=== PATIENT | female | born 1995 | race Caucasian/White ===

== ENCOUNTER 2019-08-29 11:56 | Inpatient (IN) | payer OTHER ==
[~2019-08-29] VITALS: Ht 149.9 cm; Wt 50.3 kg
[2019-08-29 12:04] VITALS: BP 112/69
--- NOTE | 2019-08-29 12:15 | NUR ---
23/F C/O UPPER ABD PAIN X2 DAYS ACCOMPANIED BY FEVER AND NAUSEA. PT DENIES V/D. LBM YESTERDAY SOFTER THAN NORMAL BUT STILL FORMED. C/O BLOATING YESTERDAY. PAIN 6/10 SHARP CRAMPY AND INTERMITTENT. DENIES POSSIBILITY OF . NAD AT THIS TIME. VSS; BEDRAILS UP X1; ERMD TO EVALUATE PT. HX: NONE RX: NONE
--- NOTE | 2019-08-29 12:32 | NUR ---
DR. HOYOS EVALUATING PT AT BEDSIDE.
[2019-08-29] MEDS ORDERED: NACL 0.9% 1,000 ML IV ONE (12:38)
[2019-08-29] MEDS ORDERED: GLYCOPYRROLATE 0.2 MG/ML VIAL IV ONE (12:40)
[2019-08-29] MEDS ORDERED: ONDANSETRON 4 MG/2 ML VIAL IVP ONE (12:40)
[2019-08-29] MEDS ORDERED: MORPHINE SULFATE 2 MG/ML SYR IVP ONE (12:40)
[2019-08-29] MEDS ORDERED: KETOROLAC 30 MG/ML VIAL IVP ONE (12:40)
[2019-08-29 13:29] LABS: BASOPHILS % (AUTO) 0.5 % (0.0-2.0); EOSINOPHILS % (AUTO) 0.1 % (0.0-4.0); HEMATOCRIT 39.4 % (36-48); HEMOGLOBIN 13.1 g/dL (12.0-16.0); LYMPHOCYTES # (AUTO) 1.7 K/uL (2.5-16.5); LYMPHOCYTES % (AUTO) 40.4 % (20.5-51.1); MEAN CORPUSCULAR HEMOGLOBIN 30 pg (27-31); MEAN CORPUSCULAR HGB CONC 33 g/dL (33-37); MONOCYTES # (AUTO) 0.4 K/uL (0.8-1.0); MONOCYTES % (AUTO) 9.3 % (1.7-9.3); NEUTROPHILS # (AUTO) 2.1 K/uL (1.8-7.7); NEUTROPHILS % (AUTO) 49.7 % (42.2-75.2); PLATELET COUNT (AUTO) 163 K/uL (140-450); RED BLOOD CELL COUNT(AUTO) 4.33 MIL/uL (4.20-5.40); RED CELL DISTRIBUTION WIDTH 12.9 % (11.6-13.7); WHITE BLOOD COUNT (AUTO) 4.2 K/uL (4.8-10.8)
[2019-08-29 13:41] LABS: APPEARANCE,URINE CLEAR (CLEAR); BILIRUBIN,URINE NEGATIVE (NEGATIVE); BLOOD, URINE TRACE-I (NEGATIVE); COLOR,URINE YELLOW (YELLOW); LEUKOCYTE ESTERASE ,URINE 2+ (NEGATIVE); NITRITE, URINE NEGATIVE (NEGATIVE); UGLUCOSE NEGATIVE (NEGATIVE)
[2019-08-29 13:49] LABS: ANION GAP 13.3 (8-16); CARBON DIOXIDE 26.5 mmol/L (21-32); CREATININE 0.6 mg/dL (0.6-1.3); POTASSIUM 3.8 mmol/L (3.5-5.1)
--- NOTE | 2019-08-29 13:49 | NUR ---
Patient returned from CT scan.
[2019-08-29 13:56] LABS: PROTHROMBIN TIME 10.4 secs (10.8-13.4)
[2019-08-29 13:57] LABS: RBC,URINE 0-5 /HPF (0-5)
[2019-08-29 13:58] LABS: ALBUMIN 3.9 g/dL (3.4-5.0); TOTAL BILIRUBIN 0.5 mg/dL (0.0-1.0)
[2019-08-29 13:58] LABS: BARBITURATE, URINE NEG. ng/ml (NEG <=200); BENZODIAZEPINE, URINE NEG. ng/mL (NEG <=200); CANNABINOID, URINE NEG. ng/mL (NEG <=50); COCAINE, URINE NEG. ng/mL (NEG <=300); OPIATE, URINE NEG. ng/mL (NEG <=2000); PHENCYCLIDINE SCREEN,URINE NEG. ng/mL (NEG <=25)
[2019-08-29] MEDS ORDERED: LEVOFLOXACIN 500 MG TAB PO ONE (14:15)
--- NOTE | 2019-08-29 14:31 | NUR ---
ASKED PHARMACY TO BRING ROCEPHIN--OMNICELL SHOWS INSUFFICIENT STOCK.
--- NOTE | 2019-08-29 14:46 | NUR ---
Dr. Blackwood is evaluating the patient at bedside.
--- NOTE | 2019-08-29 14:49 | NUR ---
PT RESTING IN BED, NO SIGNS OF DISTRESS.
--- NOTE | 2019-08-29 16:19 | NUR ---
Dr. Cristo Ramirez agreed to serve as the surgical consult.
--- NOTE | 2019-08-29 16:25 | NUR ---
Patient will be admitted to care of DR. CASAS. Admited to MED SURG. Will go to room 105B. Belongings list completed. Report to ELENA EATON.
--- NOTE | 2019-08-29 16:25 | NUR ---
Received report from ER nurse Ivory. Pt came to unit on wheel chair. Pt walked with steady gait. No complains of pain or distress noted. Admission assessment. Skin intact Family be bedside. Call light in reach.
--- NOTE | 2019-08-29 16:27 | NUR ---
DISCHARGE PLANNIN23 Y/O FEMALE PATIENT FROM HOME, WHO CAME IN DUE TO ABDOMINAL PAIN, FEVER, NAUSEA AND BLOATING X 3 DAYS. NO SIGNIFICANT MEDICAL HISTORY. INITIAL DIAGNOSIS OF APPENDICITIS. CT ABD/PELVIS SHOWED EARLY ACUTE APPENDICITIS AND LEFT OVARIAN CYST VS DOMINANT FOLLICLE. CURRENT LABS INCLUDE WBC 4.2, H/H 13.1/39.4 AND LIPASE 169. SURGICAL CONSULT WITH DR BARRERA. DC PLAN TO GO BACK HOME ONCE STABLE.
[2019-08-29 16:34] VITALS: BP 109/76
[2019-08-29] MEDS ORDERED: KETOROLAC 30 MG/ML VIAL IVP PRN (17:55)
[2019-08-29] MEDS ORDERED: MORPHINE SULFATE 2 MG/ML SYR IVP PRN ×2 (17:55→20:20)
[2019-08-29] MEDS ORDERED: ONDANSETRON 4 MG/2 ML VIAL IVP PRN ×2 (17:55→19:55)
[2019-08-29] MEDS ORDERED: DEXTROSE 5% 1,000 ML IV SCH (17:55)
[2019-08-29] MEDS: PIPERACILLIN/TAZOBACTAM 3.375 GM in DEXTROSE 5% 50 ML IV SCH (18:00)
[2019-08-29] MEDS: DEXT 5% /NACL 0.9% 1,000 ML IV SCH (18:15)
[2019-08-29] MEDS ORDERED: BUPIVACAINE-MPF/EPI 0.25% 30 ML VIAL INJ ONE (18:58)
--- NOTE | 2019-08-29 19:00 | NUR ---
Pt is off unit. Pt is taken to OR.
[2019-08-29] MEDS ORDERED: PROPOFOL 200 MG/20 ML VIAL IV ONE (19:20)
[2019-08-29] MEDS ORDERED: DEXAMETHASONE 4 MG/ML VIAL ONE (19:20)
[2019-08-29] MEDS ORDERED: SEVOFLURANE 250 ML BTL INH ONE (19:20)
[2019-08-29] MEDS ORDERED: ROCURONIUM 50 MG/5 ML VIAL IV ONE (19:20)
[2019-08-29] MEDS ORDERED: SUCCINYLCHOLINE CHLORIDE 200 MG/10 ML VIAL IVP ONE (19:20)
[2019-08-29] MEDS ORDERED: ONDANSETRON 4 MG/2 ML VIAL ONE (19:20)
--- NOTE | 2019-08-29 19:26 | NUR ---
RECEIVED REPORT FROM AM RN AND PT. PRESENTLY WHEELED OUT TO OR . ONLY FAMILY MEMBERS IN THE ROOM.
--- NOTE | 2019-08-29 19:32 | NUR ---
Shift report given to rn shift mgr nurse. Pt is in OR at this time.
[2019-08-29] MEDS ORDERED: HYDROmorphone 1 MG/ML AMP IVP PRN (19:55)
[2019-08-29] MEDS ORDERED: diphenhydrAMINE 50 MG/ML VIAL IVP PRN (19:55)
[2019-08-29] MEDS ORDERED: MEPERIDINE 25 MG/ML SYR IVP PRN (19:55)
[2019-08-29] MEDS: LACTATED RINGERS 1,000 ML IV SCH (19:55)
[2019-08-29] MEDS ORDERED: traMADol 50 MG TAB PO PRN (20:20)
[2019-08-29 21:00] VITALS: BP 108/73
--- NOTE | 2019-08-29 21:01 | NUR ---
RECEIVED FROM OR PER SONALI AWAKE AND ALERT. ABLE TO VERBALIZE WELL IN [facility]. FEMALE FAMILY MEMBER IN ROOM . CALL LIGHT WITH IN REACH. NO PAIN AT THIS TIME. INCISION SITES WITH DERMA MAN INTACT AND NO BLEEDING.
--- NOTE | 2019-08-29 21:52 | NUR ---
PT. IN BED WITH SISTER STAYING OVER TO WATCH OVER HER. NO COMPLAINTS OF ANY PAIN DONE. ENCOURAGED TO CALL FOR ANY HELP SHE MAY NEED. PER PT. PAIN IS TOLERABLE AT THIS TIME. ON HER CELL PHONE TALKING TO HER BOYFRIEND AND SMILING. CANDYL LIGHT WITH IN REACH AT BEDSIDE FOR EASY ACCESS.
--- NOTE | 2019-08-29 22:14 | NUR ---
ASSISTED TO RESTROOM BY SISTER. ABLE TO WALK SLOWLY. ENCOURAGED NECESSITY OF SPIROMETRY USE AND TO AMBULATE IS A MUST. "OK" HEP LOCKED AT THIS TIME PER MD JAIMES ORDER. A/O x 4.
--- NOTE | 2019-08-29 23:22 | NUR ---
PT. STILL AWAKE AND ALERT. WATCHING TV WITH SISTER. REFUSED TO HAVE ANY PAIN RELIEVER OFFERED AT THIS TIME. STATED "I CAN TOLERATE IT" ENCOURAGED TO CALL FOR ANY PAIN SHE WILL HAVE. "OK" CALL LIGHT AT BEDSIDE .
[2019-08-30] VITALS: BP 95/60
[2019-08-30] MEDS: PIPERACILLIN/TAZOBACTAM 3.375 GM in DEXTROSE 5% 50 ML IV SCH ×3 (00:34→12:20)
--- NOTE | 2019-08-30 00:44 | NUR ---
PT. STILL AWAKE AND GOOD AFFECT. NO PAIN COMPLAINTS AT THIS TIME. TOLERABLE PAIN PER PT. CALL LIGHT WITH IN REACH. PT. AWAKE AND ALERT. TALKING WITH SISTER . ASSITED BY SISTER TO RESTROOM TO URINATE AT THIS TIME. NO BM PER PT. URINATED.
--- NOTE | 2019-08-30 02:01 | NUR ---
CHECKED ON PT. AND STILL AWAKE AND TALKING WITH SISTER. REFUSED PAIN RELIEVER AT THIS TIME. "I AM OK" SMILING ALL THE TIME. CALL LIGHT WITH IN REACH. HEPLOCKED ORDER.
--- NOTE | 2019-08-30 04:00 | NUR ---
SLEEPING. NO RESTLESSNESS. CALL LIGHT AT BEDSIDE.
[2019-08-30] MEDS: LACTATED RINGERS 1,000 ML IV SCH (05:55)
--- NOTE | 2019-08-30 06:44 | NUR ---
PT. BEEN AWAKE AT THIS TIME. NO SOB. REFUSED PAIN RELIEVER. ABLE TO VERBALIZE NEEDS WELL. CALL LIGHT WITH IN REACH. NO NOTED BLEEDING TO SURGICAL SITES.
[2019-08-30 07:11] LABS: HEMATOCRIT 38.8 % (36-48); HEMOGLOBIN 13.2 g/dL (12.0-16.0); LYMPHOCYTES # (AUTO) 0.8 K/uL (2.5-16.5); MEAN CORPUSCULAR HEMOGLOBIN 31 pg (27-31); MEAN CORPUSCULAR HGB CONC 34 g/dL (33-37); MEAN CORPUSCULAR VOLUME 89.5 fL (80-94); MONOCYTES # (AUTO) 0.3 K/uL (0.8-1.0); MONOCYTES % (AUTO) 6.3 % (1.7-9.3); NEUTROPHILS # (AUTO) 3.6 K/uL (1.8-7.7); NEUTROPHILS % (AUTO) 76.7 % (42.2-75.2); PLATELET COUNT (AUTO) 177 K/uL (140-450); RED BLOOD CELL COUNT(AUTO) 4.33 MIL/uL (4.20-5.40); RED CELL DISTRIBUTION WIDTH 13.3 % (11.6-13.7); WHITE BLOOD COUNT (AUTO) 4.6 K/uL (4.8-10.8)
--- NOTE | 2019-08-30 07:26 | NUR ---
ENDORSED TO THE NEXT RN FOR CONTINUITY OF CARE. AWAKE AND ALERT. ABLE TO VERBALIZE NEEDS WELL.
--- NOTE | 2019-08-30 07:28 | NUR ---
RECEIVED BEDSIDE REPORT FROM MOTHER REPAIRER NURSE FOR CONTINUITY OF CARE. PT IS AWAKE AND RESTING ON BED AT THIS TIME. PT IS AAOX4. RESPIRATION EVEN AND UNLABORED ON RA. DENIED PAIN, SOB, NAUSEA AND VOMITING. NO SIGNS OF DISTRESS NOTED. L HAND 22G, CLEAN AND INTACT. ABDOMINAL DERMAL BONDS NOTED, CLEAN AND INTACT, OTHERWISE SKIN CLEAN AND DRY. PT IS CONTINENT AND ABLE TO AMBULATE. ENCOURAGED PT TO AMBULATE WHEN TOLERATE, PT WAS AWARE. DISCUSSED PLAN OF CARE WITH PT AND PT VERBALIZED UNDERSTANDING. SAFETY MEASURES IN PLACE. BED IN LOW POSITION AND CALL LIGHT WITHIN REACH. INSTRUCTED PT TO USE THE CALL LIGHT FOR ANY ASSISTANCE AND PT SAID OK.
[2019-08-30 07:49] LABS: ALBUMIN 3.8 g/dL (3.4-5.0); ANION GAP 15.6 (8-16); CARBON DIOXIDE 24.9 mmol/L (21-32); CREATININE 0.6 mg/dL (0.6-1.3); POTASSIUM 4.5 mmol/L (3.5-5.1); TOTAL BILIRUBIN 0.5 mg/dL (0.0-1.0)
[2019-08-30 08:00] VITALS: BP 103/64
--- NOTE | 2019-08-30 08:10 | NUR ---
PATIENT HAS BEEN SCREENED AND CATEGORIZED LOW NUTRITION RISK. PATIENT WILL BE SEEN WITHIN 7 DAYS OF ADMISSION. 09/05/[address]
[2019-08-30] MEDS: DEXT 5% /NACL 0.9% 1,000 ML IV SCH (08:33)
--- NOTE | 2019-08-30 09:15 | NUR ---
PT IS AWAKE AND RESTING IN BED. NO SIGNS OF DISTRESS AT THIS TIME. PT DENIES ANY PAIN. BED IS IN LOW POSITION AND CALL LIGHT IS IN REACH.
--- NOTE | 2019-08-30 09:35 | NUR ---
DR JAIMES IS TALKING AND ASSESSING PT AT BEDSIDE. PER DR JAIMES, PT MAY DC HOME AFTER LUNCH. PT WAS AWARE.
--- NOTE | 2019-08-30 10:42 | NUR ---
Ocular Care Technologist Note: Basic Screen: Yes High Risk DC Screen [place]: DUYEN Martell Relationship: MOTHER Pre-Admission Living Arrangements: Lives with Other Other: LIVES WITH FAMILY Current Home Health Name/Tel: N/A Current DME/02 Name/Tel: N/A Current Hospice Name/Tel: N/A Current Dialysis Name/Tel: N/A Healthcare Decision Maker: Patient Advance Directive No - REFUSED Patient/Family Have Educational Needs No Information Taught: Advance Directive Person Taught: Family Patient Teaching Tools: Verbal Factors Affecting Learning: None Participation Level: Refused Evaluation: Verbalizes Understanding Needs Additional Education: No Discipline: Case Mgt/Social Svcs Tentative Discharge Plan/Destination: No Needs Identified Will require assistance post discharge: No Referred to Entry Level Receptionist: No Tentative Discharge Plan Summary: Patient is a 23-year-old female admitted for appendicitis. Patient has no significant PMHX. Patient was admitted from home. SW met with patient at bedside to verify demographics. Patient's father and sister were present. Patient reports no history of mental health and no history of substance abuse. SW provided education to family about advanced directive. Patient refused. Patient's tentative discharge plan is to return home. No further needs identified. Signature: JJ Alcaraz Date: Aug 30, 2019 Time: 10:42
--- NOTE | 2019-08-30 11:21 | NUR ---
PT AWAKE AND TALKING TO FAMILY AT BEDSIDE. DENIED PAIN, NAUSEA AND VOMITING. ENCOURAGED PT TO AMBULATE WHEN AWAKE AND ABLE TO TOLERATE, PATIENT SAID "OK, I WILL LATER." NO SIGNS OF DISTRESS NOTED. SAFETY MEASURES IN PLACE. BED IN LOW POSITION AND CALL LIGHT WITHIN REACH. INSTRUCTED PT TO USE THE CALL LIGHT FOR ANY ASSISTANCE AND PT SAID OK.
--- NOTE | 2019-08-30 11:36 | NUR ---
PCP Appointment: CAROLINE contacted Rhoda from Dr. Manjeet Lynn's office [phone]. CAROLINE made hospital follow up appointment for 1460 on 09/06/2019 @ [address] [place] [address]. CAROLINE left appointment slip in patient's chart to be given at discharge. No further needs identified.
--- NOTE | 2019-08-30 12:20 | NUR ---
PT IS UP SITTING IN CHAIR IN ROOM. ADMINISTERED ANTIBIOTIC IVPB AND ARRANGED PUMP NEXT TO PT. MED EDUCATION PROVIDED TO PT AND PT VERBALIZED UNDERSTANDING. NO SIGNS OF DISTRESS AT THIS TIME. FAMILY IS WITH PT. CALL LIGHT WITHIN REACH.
--- NOTE | 2019-08-30 13:05 | NUR ---
WOUND ASSESSMENT PERFORMED, WOUND CLEAN AND INTACT. DRAMA TEACHER. DENIED PAIN, WOUND PICTURES TAKEN. PROVIDED WOUND CARE SUPPLIES. AND EDUCATED PT ON WOUND CARE. PT VERBALIZED UNDERSTANDING.
--- NOTE | 2019-08-30 13:35 | NUR ---
DISCHARGE INSTRUCTION PROVIDED TO PATIENT AT BEDSIDE. EDUCATED PT ON MD FOLLOW UP, MED REGIMEN AND SIDE EFFECTS, WOUND CARE, AND SEEK MEDICAL HELP IN CASE OF MEDICAL EMERGENCY. ANSWERED ALL PT AND FAMILY'S QUESTIONS, ALL VERBALIZED UNDERSTANDING. PT REFUSED FLU VACCINE AND ED PROVIDED AND PT INSISTED NOT WANTING FLU VACCINE DUE TO FEAR OF SIDE EFFECTS. REMOVED IV AND CANNULA INTACT, NO BLEEDING AT IV SITE. REMOVED ALL ARM BANDS. PT CHECKED ALL CABINETS AND TOOK ALL HER BELONGINGS. FOLLOW UP APPT SLIP PROVIDED. PT WAS AWARE PRESCRIPTION SEND TO HER PREFERRED PHARMACY. ESCORTED PT BY WALKING TO THE FRONT LOBBY, PT IS GOING TO DC AT THIS TIME ACCOMPANY BY HER DAD. PT IS IN STABLE CONDITION.
== END 2019-08-30 13:35 | disposition home or self-care (01) | DRG 234 ==
LOC: MED 11:56 → MTU 16:02
PROVIDERS: ADMIT Internal Medicine; ATTEND Internal Medicine
PROC: 0DTJ4ZZ Resection of Appendix, Percutaneous Endoscopic Approach (ICD-10-PCS; principal; 2019-08-29 19:00)
DX: K35.80 Unspecified acute appendicitis (principal)
CPT/HCPCS: 36415; 76705; 80053; 80305; 81001; 81025; 82150; 82977; 83690; 85025; 85610; 87081; 87086; 88304; J0330; J0696; J1100; J1885; J2270; J2405; J2543; J2704; J3490; J7042; J7060; Q0092

== ENCOUNTER 2020-06-12 17:46 | Observation (INO) | payer OTHER ==
[~2020-06-12] VITALS: Ht 149.9 cm; Wt 60.8 kg
[2020-06-12] MEDS ORDERED: BETAMETH ACET/BETAMETH NA PH 30 MG/5 ML VIAL IM SCH (17:51)
[2020-06-12] MEDS ORDERED: PNV91TAB8 PO (18:21)
[2020-06-12] MEDS ORDERED: FERR-212 PO (18:21)
[2020-06-12 18:22] VITALS: BP 105/57
== END 2020-06-12 19:00 | disposition home or self-care (01) ==
LOC: MLD 17:46
PROVIDERS: ADMIT Obstetrics & Gynecology; ATTEND Obstetrics & Gynecology
DX: O62.9 Abnormality of forces of labor, unspecified (principal); Z3A.26 26 weeks gestation of pregnancy
CPT/HCPCS: 59025; 81000; 96372; G0378; J0702

== ENCOUNTER 2020-06-13 18:28 | Observation (INO) | payer OTHER ==
[~2020-06-13] VITALS: Ht 149.9 cm; Wt 60.8 kg
[~2020-06-13 18:28] MED LIST: FERR-212 PO; PNV91TAB8 PO
[2020-06-13] MEDS ORDERED: BETAMETH ACET/BETAMETH NA PH 30 MG/5 ML VIAL IM ONE (18:34)
[2020-06-13] MEDS ORDERED: BETAMETH ACET/BETAMETH NA PH 30 MG/5 ML VIAL IM SCH (18:35)
[2020-06-13 18:47] VITALS: BP 96/55
== END 2020-06-13 19:07 | disposition home or self-care (01) ==
LOC: MLD 18:28
PROVIDERS: ADMIT Obstetrics & Gynecology; ATTEND Obstetrics & Gynecology
DX: O26.892 Other specified pregnancy related conditions, second trimester (principal); R10.9 Unspecified abdominal pain; Z3A.27 27 weeks gestation of pregnancy
CPT/HCPCS: 59025; 96372; G0378; J0702

== ENCOUNTER 2020-09-08 00:09 | Inpatient (IN) | payer OTHER, SELFPAY ==
[~2020-09-08] VITALS: Ht 149.9 cm; Wt 62.6 kg
[2020-09-08] MEDS ORDERED: LACTATED RINGERS 1,000 ML IV SCH (01:10)
[2020-09-08] MEDS ORDERED: ONDANSETRON 4 MG/2 ML VIAL IVP PRN (01:10)
[2020-09-08] MEDS ORDERED: OXYTOCIN 20 UNITS in LACTATED RINGERS 1,000 ML IV SCH (01:10)
[2020-09-08] MEDS ORDERED: MORPHINE SULFATE 5 MG/ML VIAL IVP PRN (01:10)
[2020-09-08 02:03] LABS: ALBUMIN 2.7 g/dL (3.4-5.0); ANION GAP 15.8 (8-16); CARBON DIOXIDE 22.8 mmol/L (21-32); CREATININE 0.4 mg/dL (0.6-1.3); POTASSIUM 3.6 mmol/L (3.5-5.1); TOTAL BILIRUBIN 0.7 mg/dL (0.0-1.0)
[2020-09-08 02:26] LABS: BASOPHILS % (AUTO) 0.1 % (0.0-2.0); EOSINOPHILS % (AUTO) 0.6 % (0.0-4.0); HEMOGLOBIN 9.7 g/dL (12.0-16.0); LYMPHOCYTES # (AUTO) 1.6 K/uL (2.5-16.5); LYMPHOCYTES % (AUTO) 22.8 % (20.5-51.1); MEAN CORPUSCULAR HEMOGLOBIN 30 pg (27-31); MEAN CORPUSCULAR HGB CONC 36 g/dL (33-37); MEAN CORPUSCULAR VOLUME 82.8 fL (80-94); MONOCYTES # (AUTO) 0.5 K/uL (0.8-1.0); MONOCYTES % (AUTO) 7.3 % (1.7-9.3); NEUTROPHILS % (AUTO) 69.2 % (42.2-75.2); PLATELET COUNT (AUTO) 164 K/uL (140-450); RED BLOOD CELL COUNT(AUTO) 3.26 MIL/uL (4.20-5.40); RED CELL DISTRIBUTION WIDTH 14.2 % (11.6-13.7); WHITE BLOOD COUNT (AUTO) 7.2 K/uL (4.8-10.8)
[2020-09-08 02:46] VITALS: BP 115/57
[2020-09-08 04:26] LABS: APPEARANCE,URINE SL CLOUDY (CLEAR); BILIRUBIN,URINE NEGATIVE (NEGATIVE); BLOOD, URINE TRACE-I (NEGATIVE); COLOR,URINE YELLOW (YELLOW); LEUKOCYTE ESTERASE ,URINE 3+ (NEGATIVE); NITRITE, URINE NEGATIVE (NEGATIVE); UGLUCOSE NEGATIVE (NEGATIVE)
[2020-09-08] MEDS ORDERED: OXYTOCIN 20 UNITS/LR PREMIX 1,000 ML IV ONE (05:41)
[2020-09-08 05:59] LABS: RBC,URINE 0-5 /HPF (0-5); WBC,URINE 16-25 (MOD) /HPF (0-5)
[2020-09-08] MEDS ORDERED: ROPIVACAINE 0.2%/NS PREMIX 200 ML EPI ONE (07:34)
--- NOTE | 2020-09-08 08:58 | NUR ---
PATIENT HAS BEEN SCREENED AND CATEGORIZED LOW NUTRITION RISK. PATIENT WILL BE SEEN WITHIN 7 DAYS OF ADMISSION. 09/14/[address]
[2020-09-08] MEDS ORDERED: oxyCODONE/APAP 5/325 MG 1 TAB TAB PO PRN (12:50)
[2020-09-08] MEDS ORDERED: METHYLERGONOVINE 0.2 MG/ML AMP IM PRN (12:50)
[2020-09-08] MEDS ORDERED: MEASLES, MUMPS, AND RUBELLA 1 VIAL SQVAC PRN (12:50)
[2020-09-08] MEDS ORDERED: TEMAZEPAM 15 MG CAP PO PRN (12:50)
[2020-09-08] MEDS ORDERED: SODIUM PHOSPHATE 118 ML ENEM RC PRN (12:50)
[2020-09-08] MEDS ORDERED: IBUPROFEN 800 MG TAB PO PRN (12:50)
[2020-09-08] MEDS ORDERED: BENZOCAINE/MENTHOL 20%-0.5% 60 GM CAN TP PRN (12:50)
[2020-09-08] MEDS ORDERED: DOCUSATE SOD/SENNA 50/8.6 MG 1 TAB PO SCH (21:00)
[2020-09-08] MEDS: bisacodyL 5 MG TABEC PO SCH (22:19)
[2020-09-09 06:24] LABS: HEMATOCRIT 28.4 % (36-48); HEMOGLOBIN 9.8 g/dL (12.0-16.0)
[2020-09-09] MEDS: bisacodyL 5 MG TABEC PO SCH (20:45)
== END 2020-09-10 12:45 | disposition home or self-care (01) | DRG 560 ==
LOC: OBSVTOIN 00:09 → MLD 00:09 → MFCC 14:00
PROVIDERS: ADMIT Obstetrics & Gynecology; ATTEND Obstetrics & Gynecology
PROC: 10E0XZZ Delivery of Products of Conception, External Approach (ICD-10-PCS; principal; 2020-09-08)
PROC: 10907ZC Drainage of Amniotic Fluid, Therapeutic from Products of Conception, Via Natural or Artificial Opening (ICD-10-PCS; 2020-09-08)
PROC: 00HU33Z Insertion of Infusion Device into Spinal Canal, Percutaneous Approach (ICD-10-PCS; 2020-09-08)
PROC: 3E0R3BZ Introduction of Anesthetic Agent into Spinal Canal, Percutaneous Approach (ICD-10-PCS; 2020-09-08)
DX: O69.81X0 Labor and delivery complicated by cord around neck, without compression, not applicable or unspecified (principal); Z3A.39 39 weeks gestation of pregnancy; Z37.0 Single live birth; Z20.828 Contact with and (suspected) exposure to other viral communicable diseases
CPT/HCPCS: 36415; 51702; 59409; 80053; 81001; 85018; 85025; 86592; 86762; 86886; 86900; 86901; 87086; 87340; J2590; J2795; J7120

== ENCOUNTER 2021-10-07 11:25 | Emergency (ER) | payer OTHER, SELFPAY ==
--- NOTE | 2021-10-07 11:39 | NUR ---
PT CALLED FIRST TIME NO ANSWER.
--- NOTE | 2021-10-07 11:49 | NUR ---
PT CALLED SECOND TIME NO ANSWER.
--- NOTE | 2021-10-07 12:20 | NUR ---
PT CALLED THIRD TIME NO ANSWER. MADE AWARE PT LWBS.
== END 2021-10-07 12:20 | disposition left against medical advice (07) ==
LOC: MED 11:25
DX: R05.9 Cough, unspecified (principal); Z53.21 Procedure and treatment not carried out due to patient leaving prior to being seen by health care provider

== ENCOUNTER 2022-01-25 21:10 | Observation (INO) | payer OTHER ==
[~2022-01-25] VITALS: Ht 149.9 cm; Wt 55.8 kg
[2022-01-25 21:49] VITALS: BP 97/53
[2022-01-25] MEDS ORDERED: HYDROcodone/APAP 5/325 MG 1 TAB TAB PO SCH (22:05)
[2022-01-25] MEDS ORDERED: HYDROcodone/APAP 5/325 MG 1 TAB TAB ONE (22:09)
[2022-01-25 22:42] LABS: APPEARANCE,URINE CLEAR (CLEAR); BILIRUBIN,URINE NEGATIVE (NEGATIVE); BLOOD, URINE TRACE-L (NEGATIVE); COLOR,URINE YELLOW (YELLOW); LEUKOCYTE ESTERASE ,URINE NEGATIVE (NEGATIVE); NITRITE, URINE NEGATIVE (NEGATIVE); UGLUCOSE NEGATIVE (NEGATIVE)
[2022-01-25 22:52] LABS: RBC,URINE 0-5 /HPF (0-5)
== END 2022-01-25 22:26 | disposition home or self-care (01) ==
LOC: MLD 21:10
PROVIDERS: ADMIT Obstetrics & Gynecology; ATTEND Obstetrics & Gynecology
DX: O99.891 Other specified diseases and conditions complicating pregnancy (principal); M54.50 Low back pain, unspecified; Z3A.24 24 weeks gestation of pregnancy
CPT/HCPCS: 59025; 81001; 87086; G0378

== ENCOUNTER 2023-11-10 18:00 | Inpatient (IN) | payer OTHER ==
[~2023-11-10] VITALS: Ht 149.9 cm; Wt 68.0 kg
[2023-11-10] MEDS ORDERED: PREN-537 PO (18:24)
[2023-11-10] MEDS ORDERED: CARBOPROST 250 MCG/ML AMP IM PRN (18:25)
[2023-11-10] MEDS ORDERED: METHYLERGONOVINE 0.2 MG/ML AMP IM PRN ×2 (18:25→20:55)
[2023-11-10] MEDS ORDERED: LACTATED RINGERS 1,000 ML IV SCH (18:25)
[2023-11-10] MEDS ORDERED: MORPHINE SULFATE 2 MG/ML SYR IVP PRN (18:35)
[2023-11-10] MEDS ORDERED: ONDANSETRON 4 MG/2 ML VIAL IVP PRN (18:35)
[2023-11-10 19:15] LABS: BASOPHILS % (AUTO) 0.1 % (0.0-2.0); EOSINOPHILS % (AUTO) 0.2 % (0.0-4.0); HEMATOCRIT 31.7 % (36-48); HEMOGLOBIN 10.7 g/dL (12.0-16.0); LYMPHOCYTES # (AUTO) 2.4 K/uL (2.5-16.5); MEAN CORPUSCULAR HEMOGLOBIN 24 pg (27-31); MEAN CORPUSCULAR HGB CONC 34 g/dL (33-37); MEAN CORPUSCULAR VOLUME 72.5 fL (80-94); MONOCYTES # (AUTO) 0.6 K/uL (0.8-1.0); MONOCYTES % (AUTO) 6.4 % (1.7-9.3); NEUTROPHILS # (AUTO) 6.2 K/uL (1.8-7.7); NEUTROPHILS % (AUTO) 67.3 % (42.2-75.2); PLATELET COUNT (AUTO) 218 K/uL (140-450); RED BLOOD CELL COUNT(AUTO) 4.37 MIL/uL (4.20-5.40); RED CELL DISTRIBUTION WIDTH 16.9 % (11.6-13.7); WHITE BLOOD COUNT (AUTO) 9.3 K/uL (4.8-10.8)
[2023-11-10 19:20] VITALS: BP 121/82; PULSE 100; RESP 20; TEMP 98.3
[2023-11-10 19:23] LABS: BILIRUBIN,URINE NEGATIVE (NEGATIVE); BLOOD, URINE NEGATIVE (NEGATIVE); COLOR,URINE YELLOW (YELLOW); LEUKOCYTE ESTERASE ,URINE 2+ (NEGATIVE); NITRITE, URINE NEGATIVE (NEGATIVE); PROTEIN,URINE NEGATIVE (NEGATIVE); UGLUCOSE NEGATIVE (NEGATIVE)
[2023-11-10 19:25] LABS: APPEARANCE,URINE SLIGHTLY CLOUDY (CLEAR)
[2023-11-10 19:26] LABS: BACTERIA,URINE 2+ /HPF (None Seen); MUCUS,URINE None Seen /LPF (None Seen); RBC,URINE 0 /HPF (0-5); SQUAMOUS EPITHELIAL CELL,UR 4-10 (MOD) /LPF (0-3 (FEW))
[2023-11-10 19:33] LABS: INR 0.88 (0.8-1.2); PARTIAL THROMBOPLASTIN TIME 26.3 secs (22-35.6); PROTHROMBIN TIME 9.3 secs (10.8-13.4)
[2023-11-10 19:34] LABS: ALBUMIN 2.7 g/dL (3.4-5.0); ANION GAP 11.5 (8-16); CREATININE 0.5 mg/dL (0.6-1.3); POTASSIUM 3.5 mmol/L (3.5-5.1); TOTAL BILIRUBIN 0.7 mg/dL (0.0-1.0); TOTAL PROTEIN, SERUM 7.3 g/dL (6.4-8.2)
[2023-11-10] MEDS ORDERED: OXYTOCIN/0.9 % SODIUM CHLORIDE 500 ML IV ONE (19:50)
[2023-11-10] MEDS ORDERED: OXYTOCIN/0.9 % SODIUM CHLORIDE 500 ML IV SCH (19:50)
[2023-11-10] MEDS ORDERED: METHYLERGONOVINE 0.2 MG TAB PO PRN (20:55)
[2023-11-10] MEDS ORDERED: OXYTOCIN 10 UNITS/ML VIAL IM PRN (20:55)
[2023-11-10] MEDS ORDERED: HYDROcodone/APAP 5/325 MG 1 TAB TAB PO PRN (20:55)
[2023-11-10] MEDS ORDERED: MEASLES, MUMPS, AND RUBELLA 1 VIAL SQVAC ONE (20:55)
[2023-11-10] MEDS ORDERED: oxyCODONE/APAP 5/325 MG 1 TAB TAB PO PRN (20:55)
[2023-11-10] MEDS ORDERED: IBUPROFEN 800 MG TAB PO PRN (20:55)
[2023-11-10] MEDS ORDERED: TEMAZEPAM 15 MG CAP PO PRN (20:55)
[2023-11-11] MEDS ORDERED: DOCUSATE SOD/SENNA 50/8.6 MG 1 TAB ONE (00:01)
[2023-11-11] MEDS: DOCUSATE SOD/SENNA 50/8.6 MG 1 TAB PO SCH (00:08)
[2023-11-11 07:25] LABS: HEMATOCRIT 29.4 % (36-48); HEMOGLOBIN 9.8 g/dL (12.0-16.0)
[2023-11-11] MEDS ORDERED: MEDS-TO-BEDS MC SCH (21:00)
== END 2023-11-12 14:30 | disposition home or self-care (01) | DRG 560 ==
LOC: OBSVTOIN 18:00 → MLD 18:00 → MFCC 23:36
PROVIDERS: ADMIT Obstetrics & Gynecology; ATTEND Obstetrics & Gynecology
PROC: 10E0XZZ Delivery of Products of Conception, External Approach (ICD-10-PCS; principal; 2023-11-10)
DX: O80 Encounter for full-term uncomplicated delivery (principal); Z37.0 Single live birth; Z3A.39 39 weeks gestation of pregnancy
CPT/HCPCS: 36415; 59409; 80053; 81001; 85018; 85025; 85610; 85730; 86592; 86762; 86886; 86900; 86901; 87086; 87340; J2590